=== PATIENT | male | born 1940 | race Two or more races ===

== ENCOUNTER 2023-04-21 09:47 | Day surgery (SDC) | payer MEDICARE ==
[~2023-04-21] VITALS: Ht 170.2 cm; Wt 76.2 kg
[2023-04-21] VITALS (10 sets, daily range): BP systolic 102–180; BP diastolic 45–108; PULSE 56–75; RESP 11–19; O2SAT 95–100
[~2023-04-21 09:47] MED LIST: DONE5TAB80 PO; FURO40TA4 PO; LEVO50TA7 PO; LOSA100T58 PO; MEMA1TAB3 PO; POTA-180 PO; WARF-66 PO
[2023-04-21] MEDS ORDERED: fentaNYL CITRATE 100 MCG/2 ML VL IV ONE (10:45)
[2023-04-21] MEDS ORDERED: MIDAZOLAM HCL 2MG/2ML 2ml VIAL (1mg/ml) IV ONE (10:45)
[2023-04-21] MEDS ORDERED: LIDOCAINE VISCOUS 2% 15ML UD MT ONE (10:45)
== END 2023-04-21 13:35 | disposition home or self-care (01) ==
LOC: CATH 09:47
PROVIDERS: ATTEND Internal Medicine
DX: I48.91 Unspecified atrial fibrillation (principal); I10 Essential (primary) hypertension; E78.00 Pure hypercholesterolemia, unspecified; Z98.890 Other specified postprocedural states; Z79.899 Other long term (current) drug therapy
CPT/HCPCS: 93312; J2250; J3010; J7050; 99152